=== PATIENT | female | born 1990 | race Hispanic/Latino ===

== ENCOUNTER → 2024-03-04 10:06 | Outpatient (CLI) | payer OTHER, SELFPAY ==
[2024-03-05 09:57] LABS: Strep Grp B PCR NEG for Grp B Strep
== END ==
PROVIDERS: Visit Provider Obstetrics & Gynecology
DX: Z34.03 Encounter for supervision of normal first pregnancy, third trimester (principal); Z3A.36 36 weeks gestation of pregnancy
CPT/HCPCS: 87653

== ENCOUNTER 2024-03-04 10:16 | Observation (INO) | payer OTHER, SELFPAY ==
--- NOTE | 2024-03-04 11:19 | DI.US.S_ITS ---
PROCEDURE: US OB LIMITED INDICATIONS: growth suspected macrosomia OUTSIDE/PRIOR DATING DATA: Last menstrual period (LMP): Unknown. LMP-based estimated date of delivery (KAZ): Unknown. First dating scan (date and location): Not available Estimated date of delivery (KAZ) from first dating scan: Not available The calculations are made using the working KAZ of 03/30/2024. TECHNIQUE: Real-time scanning was performed of the fetus, with image documentation and biometric measurements. Endovaginal scanning: Not performed COMPARISON: None. FINDINGS: General: A single living intrauterine gestation is present. Presentation: Vertex Placenta: Placental position is posterior, without previa. Amniotic fluid index: 12.5 cm, normal range is 5-24 cm. Single deepest vertical pocket is 3.8 cm. heart rate: 123 beats per minute. Maternal cervical canal: 3.8 cm long. Normal lower limit is 2.5 cm. biometrics: Biparietal diameter: 9.1 cm, 36 weeks, 6 days. Head circumference: 33.4 cm, 38 weeks, 1 day. Abdominal circumference: 32.7 cm, 36 weeks, 5 days. Femur length: 7.0 cm, 35 weeks, 6 days. Clinically estimated gestational age: 36 weeks, 2 days Composite gestational age from present scan: 36 weeks, 6 days Estimated weight and percentile: 2987 g, 62%. IMPRESSION: 1. Single live intrauterine gestation with fetus in vertex presentation. heart rate is 123 beats per minute. Normal [place] at at 12.5 cm. Estimated gestational age based on present study is 36 weeks, 6 days. Estimated weight is at 62%. We strive to produce accurate, complete, and clear reports of imaging services. To assist us in improving patient care, this report was composed using standard report templates and voice recognition software. Therefore, it may contain abnormal punctuation, insertions and/or omissions. Occasional wrong-word or sound-alike substitutions may occur. Though we review the report and make efforts to correct it, we do recommend that the report be read carefully in proper context to recognize any text inaccuracies. Dictated by: Mohit Feldman M.D. on 03/04/2024 at 13:33 Approved by: Mohit Feldman M.D. on 03/04/2024 at 13:35
== END 2024-03-04 12:30 | disposition home or self-care (01) ==
PROVIDERS: Admitting Provider Obstetrics & Gynecology; Referring Provider Obstetrics & Gynecology; Visit Provider Obstetrics & Gynecology
DX: Z34.03 Encounter for supervision of normal first pregnancy, third trimester (principal); Z3A.36 36 weeks gestation of pregnancy
CPT/HCPCS: 36415; 59025; 76815; 83036; 85025; 86592; 87340; 87389; 87653; G0378; G0379

== ENCOUNTER → 2024-03-04 12:27 | Outpatient (CLI) | payer OTHER, SELFPAY ==
[2024-03-04 13:17] LABS: Add Manual Diff / Slide Review NO; Basophils Absolute Auto 0 /uL (0-100); Basophils Percent Auto 0.5 % (0-2); Eosinophils Absolute Auto 200 /uL (0-450); Eosinophils Percent Auto 1.9 % (2-4); Hematocrit 37.9 % (36-46); Hemoglobin 12.9 g/dL (12.0-16.0); Lymphocytes Absolute Auto 1500 /uL (1100-4500); Lymphocytes Percent Auto 16.8 % (25-40); Mean Corpuscular HGB Conc 34.1 % (30-36); Mean Corpuscular Hemoglobin 31.3 PG (26-34); Mean Corpuscular Volume 91.8 fL (80-100); Monocytes Absolute Auto 800 /uL (0-900); Monocytes Percent Auto 8.6 % (3-14); Neutrophils Absolute Auto 6600 /uL (1500-7000); Neutrophils Percent Auto 72.2 % (50-75); Platelet Count 202 X10^3/uL (150-400); Red Blood Cell Count 4.13 X10^6/uL (4.0-5.2); Red Cell Distribution Width 13.6 % (11.6-14.8); White Blood Cell Count 9.1 X10^3/uL (4.5-11.0)
[2024-03-04 13:22] LABS: Hemoglobin A1C% w Est Avg Glu 5.2 % (4.0-6.0)
[2024-03-04 18:04] LABS: HIV 1 & 2 Ab/Ag 4th Gen Combo NEGATIVE (NEGATIVE); Hepatitis B Surface Antigen NEGATIVE s/c (NEGATIVE)
[2024-03-05 06:11] LABS: RPR Screen Non Reactive (Non Reactive)
== END ==
PROVIDERS: Referring Provider Obstetrics & Gynecology; Visit Provider Obstetrics & Gynecology
DX: Z34.90 Encounter for supervision of normal pregnancy, unspecified, unspecified trimester (principal)
CPT/HCPCS: 36415; 83036; 85025; 86592; 87340; 87389

== ENCOUNTER 2024-03-25 04:01 | Outpatient (CLI) | payer OTHER, SELFPAY | END 2024-03-25 05:00 | disposition home or self-care (01) | LOC: LABOR 04:05 → OB 03-27 11:45 | PROVIDERS: Referring Provider Obstetrics & Gynecology; Visit Provider Obstetrics & Gynecology | DX: O47.1 False labor at or after 37 completed weeks of gestation (principal); Z3A.39 39 weeks gestation of pregnancy | CPT/HCPCS: 59025; G0378; G0379 ==

== ENCOUNTER 2024-03-26 01:40 | Observation (INO) | payer OTHER, SELFPAY | END 2024-03-26 02:20 | disposition home or self-care (01) | LOC: LABOR 01:42 | PROVIDERS: Admitting Provider Family Medicine; Referring Provider Family Medicine; Visit Provider Family Medicine | DX: O47.1 False labor at or after 37 completed weeks of gestation (principal); Z3A.39 39 weeks gestation of pregnancy | CPT/HCPCS: 59025; G0378; G0379 ==

== ENCOUNTER 2024-03-26 06:35 | Inpatient (IN) | payer OTHER, SELFPAY ==
[2024-03-26 07:32] LABS: Add Manual Diff / Slide Review NO; Basophils Absolute Auto 100 /uL (0-100); Basophils Percent Auto 0.4 % (0-2); Eosinophils Absolute Auto 100 /uL (0-450); Eosinophils Percent Auto 0.9 % (2-4); Hemoglobin 12.9 g/dL (12.0-16.0); Lymphocytes Absolute Auto 1500 /uL (1100-4500); Lymphocytes Percent Auto 10.7 % (25-40); Mean Corpuscular Volume 91.2 fL (80-100); Monocytes Absolute Auto 900 /uL (0-900); Monocytes Percent Auto 6.7 % (3-14); Neutrophils Absolute Auto 11100 /uL (1500-7000); Neutrophils Percent Auto 81.3 % (50-75); Platelet Count 204 X10^3/uL (150-400); Red Blood Cell Count 4.17 X10^6/uL (4.0-5.2); Red Cell Distribution Width 13.7 % (11.6-14.8); White Blood Cell Count 13.7 X10^3/uL (4.5-11.0)
--- NOTE | 2024-03-26 07:55 | P.HPOB_ITS ---
OB HPI Date/Time Date of admission: 03/26/24 Date Patient Seen: 03/26/24 Time Patient Seen: 07:30 History of Present Condition Chief complaint: : 1 Estimated Date of Delivery: 03/30/24 Estimated Gestational Age (weeks): 39w3d Narrative: Lizeth Starr is a 33 year old female G1 at 39w3d d=11wk US who presents to triage in term labor. Pt initially seen early this AM for c/o same, ftp/thick/hi at that time and sent home with precautions. Pt subsequently returned to hospital this AM with interval cervical change (/-2 per RN exam), membranes intact. course notable for late transfer of care to our practice at 36wga secondary to . Excessive maternal weight gain (TWG 31#) without evidence of hyperglycemia, appropriate interval growth US. 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 History of Present care: good care Dating criteria: LMP confirmed by 1st trimester US Ultrasounds: normal mid trimester US Abnormal ultrasound findings: growth US 03/04/24: EFW 2987g (62th%) Obstetrical complications: other (borderline excessive maternal weight gain ) Medical complications: none Preadmission Labs Blood type: A (+) positive -: Antibody screen: negative, Cystic fibrosis screen: unknown, GBS status: negative, HBsAG: negative, HIV: negative, HSV 1: positive (no prior outbreak, on suppression), HSV 2: positive (no prior outbreak, on suppression) and RPR/VDLR: negative -: Chlamydia screen: not detected and Gonorrhea screen: not detected -: Rubella: not immune (needs MMR) PAP: Normal Cell-free DNA: low risk XX 1 hr GTT: 103 Evaluation Evaluation Baseline heart rate: 130 Variability: Moderate (11-25) monitor accelerations: Present Monitor Decelerations: Absent Contraction Frequency (minutes): 3 Uterine Contraction Intensity: Moderate Category of Tracing: Reactive Status: Category l Dilation (cm): 8 Effacement (%): 90 Dilation: >/=5 cm Effacement: >/=80% station: -1 Position of cervix: mid Consistency: soft Russo score: 11 [facility] Medical History (Updated 03/04/24 @ 12:12 by Carmen Jara MD) Excessive weight gain during , antepartum Third trimester History of cold sores Eczema Surgical History (Updated 02/28/24 @ 15:42 by Maribell Duarte, RN) Status post cryotherapy of skin lesion History of thoracic surgery History of appendectomy (~2013) Family History (Updated 02/28/24 @ 15:45 by Maribell Duarte, RN) Grandmother Glaucoma Anxiety Depression Grandmother Alzheimer disease Dementia Diabetes mellitus Mother Anxiety Depression Father Alcoholism Grandfather Alcoholism Brother Bipolar disorder Anxiety Depression Family/Other Congenital pectus excavatum Social History marital status: unmarried,living together number of children: 0 household members: significant other lives independently: Yes caregiver/support person: No housing: house pets and animals: No education level: college (some college) occupational status: employed (works from home) current occupational exposures/hazards: No special eileen needs: No travel history: recent ([facility] only) seatbelt use: always water heater temp set < 120 deg: Yes working smoke detector in home: Yes fire extinguisher in home: Yes carbon monox detector in home: Yes firearms in home: Yes firearms unloaded and locked: Yes do you feel safe at home: Yes Smoking Status: Never smoker alcohol intake: former (~1-2/week when not ) substance use type: does not use during the past year weight has: other (stable prior to ) well-balanced diet: daily or most days daily servings fruits/ve-4 caffeine: Yes (small cup coffee in AM) Type(s) of exercise: walking Meds Home Medications and Allergies Home Medications Medication Instructions Recorded Confirmed Type cetirizine 10 mg tablet (Allergy 10 mg PO DAILY PRN Allergy Symptoms 02/28/24 03/26/24 History Relief (cetirizine)) vitamin-ferrous sulfate 1 tab PO 1XD vitamins 02/28/24 03/26/24 History 27 mg iron-folic acid 0.8 mg tablet valacyclovir 1 gram tablet 1,000 mg PO DAILY #45 tabs 03/04/24 03/26/24 Rx (Valtrex) Allergies Allergy/AdvReac Type Severity Reaction Status Date / Time No Known Drug Allergies Allergy Unverified 03/19/24 10:45 Review of Systems Review of Systems ROS: Yes All systems reviewed with the patient and are negative except as otherwise documented OB Exam Vital signs Blood Pressure: 115/71 Pulse Rate: 100 Respiratory Rate: 18 Temperature: 36.4 F Narrative Exam Narrative: breathing through contractions HENMT Head: normal to inspection Mouth: moist mucous membranes Eyes General: appearance normal, both eyes and all related structures Resp Effort & Inspection: normal respiratory effort Cardio Rate: tachycardic Rhythm: regular rhythm Extremities Lower extremity: Yes normal to inspection GI Inspection: normal to inspection Other: zeb cephalic 7.5# External Female Exam: Yes normal external appearance Speculum Exam - Vagina: Yes normal appearance of the vagina Speculum Exam - Cervix: normal appearance of the cervix Other: /-1, bulging bag no lesions Objective Labs 03/26/24 07:00 Labs: Laboratory Results - last 24 hr 03/26/24 07:00 WBC 13.7 H RBC 4.17 Hgb 12.9 Hct 38.0 MCV 91.2 MCH 31.0 MCHC 34.0 RDW 13.7 Plt Count 204 Neut % (Auto) 81.3 H Lymph % (Auto) 10.7 L [place] % (Auto) 6.7 Eos % (Auto) 0.9 L Baso % (Auto) 0.4 Neut # (Auto) 91155 H Lymph # (Auto) 1500 [place] # (Auto) 900 Eos # (Auto) 100 Baso # (Auto) 100 Assessment and Plan Assessment and Plan Assessment and Plan narrative: 33yo G1 at 39w3d d=11wk US presents in active term labor Term labor Admit orders in, CBC/T&S on admission PNL reviewed, GBS neg, rubella non-immune, +HSV per serology without h/o outbreak and compliant with suppressive therapy, no lesions on admission Cat 1 tracing/maternal VSS anticipate vaginal delivery Patient is consented for vaginal, vaginal operative and delivery as well as transfusion of blood products as medically indicated. Risks, benefits and alternatives to therapies were reviewed with patient and partner. Time Spent with Patient Total time spent with greater than 50% in coordination of care (as documented) at patient's floor/unit and/or counseling patient:: 15-24 minutes
[2024-03-26 08:11] VITALS: BP 115/71
[2024-03-26] MEDS: LACTATED RINGERS 1,000 ML 100 ML IV (08:13)
[2024-03-26 08:32] VITALS: BP 115/71; PULSE 100; RESP 18; TEMP 2.4; TEMP 36.4
[2024-03-26] MEDS: LACTATED RINGERS 500 ML 1000 ML IV (09:40)
--- NOTE | 2024-03-26 10:03 | PM.OBPRVD ---
Events: Other (term labor ) Labor & Delivery Delivery date: 03/26/24 Intrapartal Events: None Cervical ripening method: none Induction method: none Delivery augmentation: rupture of membranes Delivery monitor: external FHT Route of delivery: Episiotomy description: None L&D Laceration Description: Vaginal - 1st Degree Delivery repair: other (none) Estimated blood loss (mL): 250 Quantitative Blood Loss: 242 Anesthesia Type: None (inhaled nitrous ) [place] Baby 1: gender: Female Presentation: vertex Position: Left Occiput Anterior Placenta delivery description: Spontaneous Cord Vessel Description: 3 Vessels score (1 min): 8 score (5 min): 9 weight: 7 lb 6 oz Narrative: Pt in dorsal lithotomy position, intact bulging forebag artificially ruptured with return of copious clear fluid. C/C/+1. Expulsive efforts initiated with slow, progressive descent of head to +2 station, Cat 1 tracing per external monitor throughout second stage. Ongoing self-administration of nitrous per pt secondary to difficulty with pain control. Over next 2 pushes delivery of head over intact perineum, OA with restitution to maternal L. Noted compound presentation (RUE) delivered through; no nuchal cord. Anterior shoulder delivered with gentle downwards traction followed by immediate delivery of posterior shoulder and body. placed on maternal abdomen and immediately vigorous. Delayed cord clamping x90s; cord clamped x2 and cut by FOB. 3VC noted and cord blood collected. Placenta delivered spontaneously and intact, brisk bleeding resolved with fundal massage with subsequent noted excellent tone. Perineal exam revealed single L vaginal laceration (hemostatic) and R periurethral laceration (hemostatic), no indication for repair. Fundus again palpated and found to be firm. Plan for aftercare: Routine care
[2024-03-26] MEDS: ACETAMINOPHEN 325 MG TABLET 650 MG PO ×2 (12:48→18:45)
[2024-03-26] MEDS: IBUPROFEN 600 MG TABLET PO ×2 (12:48→18:46)
[2024-03-26] MEDS: DERMOPLAST SPRAY 20% 60 ML 1 SPRAY TOP (18:11)
[2024-03-27] MEDS: ACETAMINOPHEN 325 MG TABLET 650 MG PO ×2 (02:03→08:43)
[2024-03-27] MEDS: IBUPROFEN 600 MG TABLET PO ×2 (02:04→08:43)
[2024-03-27 06:52] LABS: Add Manual Diff / Slide Review NO; Basophils Absolute Auto 100 /uL (0-100); Basophils Percent Auto 0.9 % (0-2); Eosinophils Absolute Auto 200 /uL (0-450); Eosinophils Percent Auto 2.2 % (2-4); Hematocrit 32.2 % (36-46); Hemoglobin 11.1 g/dL (12.0-16.0); Lymphocytes Absolute Auto 1400 /uL (1100-4500); Lymphocytes Percent Auto 13.3 % (25-40); Mean Corpuscular HGB Conc 34.4 % (30-36); Mean Corpuscular Hemoglobin 31.3 PG (26-34); Mean Corpuscular Volume 91.2 fL (80-100); Monocytes Absolute Auto 900 /uL (0-900); Neutrophils Absolute Auto 7800 /uL (1500-7000); Neutrophils Percent Auto 74.6 % (50-75); Platelet Count 175 X10^3/uL (150-400); Red Blood Cell Count 3.53 X10^6/uL (4.0-5.2); Red Cell Distribution Width 13.8 % (11.6-14.8); White Blood Cell Count 10.5 X10^3/uL (4.5-11.0)
--- NOTE | 2024-03-27 08:07 | PM.PN.1 ---
Subjective Subjective Date Patient Seen: 03/27/24 Time Patient Seen: 07:30 Exam Vital Signs (past 8 hours): BP 108/70 HR 81 RR 18 Tc 97.5F Narrative Exam Narrative: sleeping, easily aroused; in bassinet at bedside Const General: cooperative, healthy appearing and comfortable Nutritional Appearance: average body habitus Orientation: alert and oriented x3 Limitations: mental status not altered HENMT Head: normal to inspection Mouth: moist mucous membranes Eyes General: appearance normal, both eyes and all related structures Neck Neck: normal visual inspection Chest Chest: normal inspection of the chest Breast inspection: normal inspection of the breasts Resp Effort & Inspection: normal respiratory effort Cardio Pulses: normal peripheral pulses GI Other: fundus firm << Umb, non-tender Other: deferred, lochia wnl per RN Skin General: no rashes or lesions noted Neuro General: patient alert, patient awake and patient oriented x3 Extrem General: normal to inspection Psych Appearance: grossly normal and well kempt Mental Status: mental status grossly normal Mood: congruent mood Judgment: judgment good Objective Labs 03/27/24 06:39 Labs: Laboratory Results - last 24 hr 03/26/24 03/27/24 07:00 06:39 WBC 10.5 RBC 3.53 L Hgb 11.1 L Hct 32.2 L MCV 91.2 MCH 31.3 MCHC 34.4 RDW 13.8 Plt Count 175 Neut % (Auto) 74.6 Lymph % (Auto) 13.3 L [place] % (Auto) 9.0 Eos % (Auto) 2.2 Baso % (Auto) 0.9 Neut # (Auto) 7800 H Lymph # (Auto) 1400 [place] # (Auto) 900 Eos # (Auto) 200 Baso # (Auto) 100 Blood Type A Positive Antibody Screen Negative [facility] Medical History (Updated 03/27/24 @ 08:15 by Carmen Jara MD) Excessive weight gain during , antepartum Third trimester History of cold sores Eczema Surgical History (Updated 02/28/24 @ 15:42 by Maribell Duarte, GRACY) Status post cryotherapy of skin lesion History of thoracic surgery History of appendectomy (~2013) Family History (Updated 02/28/24 @ 15:45 by Maribell Duarte, GRACY) Grandmother Glaucoma Anxiety Depression Grandmother Alzheimer disease Dementia Diabetes mellitus Mother Anxiety Depression Father Alcoholism Grandfather Alcoholism Brother Bipolar disorder Anxiety Depression Family/Other Congenital pectus excavatum Social History marital status: unmarried,living together number of children: 0 household members: significant other lives independently: Yes caregiver/support person: No housing: house pets and animals: No education level: college (some college) occupational status: employed (works from home) current occupational exposures/hazards: No special eileen needs: No travel history: recent ([facility] only) seatbelt use: always water heater temp set < 120 deg: Yes working smoke detector in home: Yes fire extinguisher in home: Yes carbon monox detector in home: Yes firearms in home: Yes firearms unloaded and locked: Yes do you feel safe at home: Yes Smoking Status: Never smoker alcohol intake: former (~1-2/week when not ) substance use type: does not use during the past year weight has: other (stable prior to ) well-balanced diet: daily or most days daily servings fruits/ve-4 caffeine: Yes (small cup coffee in AM) Type(s) of exercise: walking Assessment & Plan Assessment and plan (1) Encounter for vaginal delivery: Status: Acute Plan 33yo PPD1 s/p lf LBFI, doing well routine care exclusively, support PRN PNL as per admission documentation rubella NON-IMMUNE, MMR prior to discharge declines immediately contraception bridge, counseled on risk of escape ovulation/use of barrier protection plan for routine office f/u 4-6wk Dispo: pending clinical course, anticipate dc to home later today PPD1 vs PPD2 pending clearance and maternal support needs Time Spent With Patient Time with patient: less than 30 minutes
[2024-03-27] MEDS: DOCUSATE 100 MG CAPSULE PO (08:44)
--- NOTE | 2024-03-27 11:45 | P.DS_ITS ---
History of Present Illness History of Present Illness Date Patient Seen: 03/27/24 Time Patient Seen: 11:46 Date of Onset of Symptoms: 03/25/24 Chief complaint: Narrative: 33yo G1 admitted to for expectant management of term labor, 39w3d on admission. Known h/o HSV without prior outbreak compliant with valtrex therapy, no lesions on admission exam; GBS negative. Pt had rapid progression to active labor, second stage uncomplicated with maternal use of inhaled nitrous for analgesia. LBFI, 8/9, wgt 7#6oz. Perineum intact, hemostatic vaginal and periurethral lacerations not repaired. Pt had uncomplicated course, exclusively, meeting all discharge milestones on PPD1. Pt declined bridge contraception at discharge, appropriately counseled on risk of escape ovulation. Routine f/u in office 4-6wks. Discharge Providers Provider Date of admission: 03/26/24 06:35 Discharge Date: 03/27/24 Primary care physician: Doctor Tor MD Consults: 03/26/24 07:15 Consult to Anesthesiology Urgent Comment: Consulting Provider: Anesthesiologist Reason for consultation: Epidural 03/27/24 12:16 Consult to Telemarketing Representative Routine Comment: Discharge provider: Carmen Jara MD Summary Hospital Course Discharge Diagnosis: s/p Hospital Course: 33yo G1 admitted to for expectant management of term labor, 39w3d on admission. Known h/o HSV without prior outbreak compliant with valtrex therapy, no lesions on admission exam; GBS negative. Pt had rapid progression to active labor, second stage uncomplicated with maternal use of inhaled nitrous for analgesia. LBFI, 8/9, wgt 7#6oz. Perineum intact, hemostatic vaginal and periurethral lacerations not repaired. Pt had uncomplicated course, exclusively, meeting all discharge milestones on PPD1. Pt declined bridge contraception at discharge, appropriately counseled on risk of escape ovulation. Routine f/u in office 4-6wks. Status at Discharge Cognitive/behavioral status at discharge: oriented Functional status at discharge: independent ambulation Overall status at discharge: patient is back to baseline Time Spent with Patient Time spent: Less than 30 minutes Objective Labs 03/27/24 06:39 Labs: Laboratory Results - last 24 hr 03/27/24 06:39 WBC 10.5 RBC 3.53 L Hgb 11.1 L Hct 32.2 L MCV 91.2 MCH 31.3 MCHC 34.4 RDW 13.8 Plt Count 175 Neut % (Auto) 74.6 Lymph % (Auto) 13.3 L [place] % (Auto) 9.0 Eos % (Auto) 2.2 Baso % (Auto) 0.9 Neut # (Auto) 7800 H Lymph # (Auto) 1400 [place] # (Auto) 900 Eos # (Auto) 200 Baso # (Auto) 100 PFSH Medical History (Updated 03/27/24 @ 08:15 by Carmen Jara MD) Excessive weight gain during , antepartum Third trimester History of cold sores Eczema Surgical History (Updated 02/28/24 @ 15:42 by Mraibell Duarte, RN) Status post cryotherapy of skin lesion History of thoracic surgery History of appendectomy (~2013) Family History (Updated 02/28/24 @ 15:45 by Maribell Duarte RN) Grandmother Glaucoma Anxiety Depression Grandmother Alzheimer disease Dementia Diabetes mellitus Mother Anxiety Depression Father Alcoholism Grandfather Alcoholism Brother Bipolar disorder Anxiety Depression Family/Other Congenital pectus excavatum Social History marital status: unmarried,living together number of children: 0 household members: significant other lives independently: Yes caregiver/support person: No housing: house pets and animals: No education level: college (some college) occupational status: employed (works from home) current occupational exposures/hazards: No special eileen needs: No travel history: recent ([facility] only) seatbelt use: always water heater temp set < 120 deg: Yes working smoke detector in home: Yes fire extinguisher in home: Yes carbon monox detector in home: Yes firearms in home: Yes firearms unloaded and locked: Yes do you feel safe at home: Yes Smoking Status: Never smoker alcohol intake: former (~1-2/week when not ) substance use type: does not use during the past year weight has: other (stable prior to ) well-balanced diet: daily or most days daily servings fruits/ve-4 caffeine: Yes (small cup coffee in AM) Type(s) of exercise: walking Discharge Plan Discharge Plan Patient Disposition: Home Discharge orders & Medications Prescriptions: New acetaminophen 325 mg Tablet 650 mg PO Q6H PRN (Reason: Fever/Mild Pain (1-3)) Qty: 30 0RF Dermoplast (with menthol) 20-0.5 % Aerosol 1 spray topical Q1HR PRN (Reason: Pain, Moderate (4-6)) Qty: 56 0RF ibuprofen 600 mg Tablet 600 mg PO Q6HR PRN (Reason: Fever/Mild Pain (1-3)) Qty: 60 0RF Purelan Cream 1 applic topical PRN PRN (Reason: Tenderness) Qty: 7 0RF A.E.R. Witch Ami 12.5-50 % Pads, Medicated 1 pad topical Q30M PRN (Reason: Itching) Qty: 40 0RF Continued vit-ferrous sulfat-FA 27 mg iron- 0.8 mg tablet 1 tab PO 1XD MDD 1 cetirizine [Allergy Relief (cetirizine)] 10 mg tablet 10 mg PO DAILY MDD 10 PRN (Reason: Allergy Symptoms) Discontinued valacyclovir [Valtrex] 1 gram tablet 1,000 mg PO DAILY Qty: 45 0RF Follow up/Referrals: Doctor Lentz MD [Primary Care Provider] - Carmen Jara MD [Physician] - Diet/Activity/Treatments Diet: Regular Activity: Nothing in the vagina for 6 weeks; no tampons, intercourse, douching, swimming in fresh water/hot tubs. Tub baths are okay after 2 weeks if tub is cleaned well first. Visit Report/Discharge Packet Instructions: DI for Labor and Delivery, Vaginal Stand Alone Forms: Patient Portal/API, Stroke Signs & Symptoms Discharge Data Primary Care Provider: Doctor Tor
[2024-03-27 11:46] VITALS: BP 108/70; PULSE 61; RESP 18; TEMP 36.4
[2024-03-27] MEDS: MEASLES,MUMPS,RUBELLA VACC/PF 0.5 ML VIAL SUBCUT (12:29)
== END 2024-03-27 18:09 | disposition home or self-care (01) | DRG 807 ==
PROVIDERS: Admitting Provider Obstetrics & Gynecology; Referring Provider Obstetrics & Gynecology; Visit Provider Obstetrics & Gynecology
DX: O98.32 Other infections with a predominantly sexual mode of transmission complicating childbirth (principal); Z37.0 Single live birth; A60.9 Anogenital herpesviral infection, unspecified; Z3A.39 39 weeks gestation of pregnancy
CPT/HCPCS: 36415; 59025; 59050; 85025; 86850; 86900; 86901; G0378; G0379

== ENCOUNTER 2024-12-02 09:19 | Emergency (ER) | payer OTHER, SELFPAY ==
[2024-12-02 09:28] VITALS: BP 126/87; PULSE 90; RESP 18; TEMP 36.5; O2SAT 99; BMI 22.7
--- NOTE | 2024-12-02 09:38 | DI.US.S_ITS ---
PROCEDURE: US OB <= 14 WEEKS FETUS INDICATIONS: spotting/cramping with LMP 1/4 OUTSIDE/PRIOR DATING DATA: Last menstrual period (LMP): 11/02/2024. LMP-based estimated date of delivery (KAZ): 08/09/2025. First dating scan (date and location): Today's exam Estimated date of delivery (KZA) from first dating scan: 08/04/2025. TECHNIQUE: Real-time scanning was performed of the fetus and maternal pelvic organs, with image documentation. Endovaginal scanning was also performed to better visualize the fetus and maternal ovaries. COMPARISON: None. FINDINGS: Suspected early gestational , with a early gestational sac present within the upper endometrium. The sac measures 3.3 mm, corresponding to 5 weeks 0 days. No fetus visualized. Maternal organs: There is a hemorrhagic cyst of the right ovary measuring 3.1 x 3.8 x 4.3 cm. Left ovary is unremarkable. IMPRESSION: Suspected intrauterine gestational , with an intrauterine gestational sac measuring up to 5 weeks 0 days, KAZ of 08/04/2025. This is concordant with clinical dating. Large right ovarian hemorrhagic cyst measuring up to 4.3 cm. We strive to produce accurate, complete, and clear reports of imaging services. To assist us in improving patient care, this report was composed using standard report templates and voice recognition software. Therefore, it may contain abnormal punctuation, insertions and/or omissions. Occasional wrong-word or sound-alike substitutions may occur. Though we review the report and make efforts to correct it, we do recommend that the report be read carefully in proper context to recognize any text inaccuracies. Dictated by: Dontrell Oneil M.D. on 12/02/2024 at 10:41 Approved by: Dontrell Oneil M.D. on 12/02/2024 at 10:44
[2024-12-02 09:58] LABS: Urine Volume 10mL (spun)
[2024-12-02 10:04] LABS: Bacteria Urine None Seen; Culture Indicated Urine Cult Not Indicated; Mucus Urine 2+ (Negative); RBC Urine None Seen (0-5/HPF); Squamous Epithelial Cell Urine 10-30 /HPF (0-5/HPF); WBC Urine None Seen (0-5/HPF)
[2024-12-02 10:07] LABS: Add Manual Diff / Slide Review NO; Basophils Absolute Auto 0 /uL (0-100); Basophils Percent Auto 0.4 % (0-2); Eosinophils Absolute Auto 100 /uL (0-450); Eosinophils Percent Auto 0.7 % (2-4); Hematocrit 41.3 % (36-46); Hemoglobin 13.9 g/dL (12.0-16.0); Lymphocytes Absolute Auto 1300 /uL (1100-4500); Mean Corpuscular HGB Conc 33.8 % (30-36); Mean Corpuscular Hemoglobin 30.2 PG (26-34); Mean Corpuscular Volume 89.3 fL (80-100); Monocytes Absolute Auto 500 /uL (0-900); Monocytes Percent Auto 5.1 % (3-14); Neutrophils Absolute Auto 7700 /uL (1500-7000); Neutrophils Percent Auto 79.8 % (50-75); Platelet Count 277 X10^3/uL (150-400); Red Blood Cell Count 4.62 X10^6/uL (4.0-5.2); Red Cell Distribution Width 12.5 % (11.6-14.8); White Blood Cell Count 9.6 X10^3/uL (4.5-11.0)
[2024-12-02 10:13] LABS: Alanine Aminotransferase 22 IU/L (<35); Albumin 4.7 g/dL (3.5-5.0); Albumin Globulin Ratio 1.5 (1.0-2.8); Alkaline Phosphatase 41 U/L (38-126); Aspartate Aminotransferase 25 IU/L (14-36); BUN Creatinine Ratio 12.2 (6-22); Bilirubin Total 0.5 mg/dL (0.2-1.3); Blood Urea Nitrogen 9 mg/dL (7-17); Calcium 9.5 mg/dL (8.4-10.2); Carbon Dioxide 24 mmol/L (22-32); Chloride 105 mmol/L (98-107); Estimated Glomerular Filt Rate > 60 mL/min (>60); Globulin 3.2 g/dL (1.7-4.1); Glucose 96 mg/dL (70-100); HEMOLYSIS < 15 (0-50); Sodium 137 mmol/L (137-145); Total Protein 7.9 g/dL (6.3-8.2)
--- NOTE | 2024-12-02 11:33 | ED.FEMALEGU ---
HPI - Female Genitourinary General Chief complaint: Abdominal Pain Stated complaint: abd cramping- preg test monday Time Seen by Provider: 12/02/24 10:28 Source: patient, RN notes reviewed and old records reviewed Mode of arrival: Ambulatory Limitations: no limitations History of Present Illness HPI Narrative: 34-year-old female last menstrual period 11/02/2024 had some spotting on Monday has had some cramping had a positive test x3 this Monday. Patient states no additional spotting or bleeding but had increased cramping today there is a little bit more intense that is improved but still present. No fevers. No lightheadedness or passing out. No chest pain or shortness of breath. No nausea or vomiting. No issues with bowel movements no urinary symptoms. Patient states no daily medications. No major drug allergies. No tobacco, no regular alcohol or recreational drugs. Related Data Home Medications Medication Instructions Recorded Confirmed cetirizine 10 mg tablet (Allergy 10 mg PO DAILY PRN Allergy Symptoms 02/28/24 04/26/24 Relief (cetirizine)) vitamin-ferrous sulfate 1 tab PO 1XD vitamins 02/28/24 04/26/24 27 mg iron-folic acid 0.8 mg tablet Previous Rx's Medication Instructions Recorded acetaminophen 325 mg tablet 650 mg (2 x 325 mg) PO Q6H PRN 03/27/24 Fever/Mild Pain (1-3) #30 tabs benzocaine 20 %-menthol 0.5 % 1 spray topical Q1HR PRN Pain, 03/27/24 topical aerosol (Dermoplast (with Moderate (4-6) #56 grams menthol)) glycerin-witch emily 12.5 %-50 % 1 pad topical Q30M PRN Itching #40 03/27/24 topical pads (A.E.R. Witch Emily) ea ibuprofen 600 mg tablet 600 mg PO Q6HR PRN Fever/Mild Pain 03/27/24 (1-3) #60 tabs lanolin (Purelan topical cream) 1 applic topical PRN PRN 03/27/24 Tenderness #7 grams oxytocin See Rx Instructions .Route 04/05/24 .COMPLEX #10 mL norgestimate 0.25 mg-ethinyl 1 tab PO DAILY #84 tabs 04/26/24 estradiol 35 mcg tablet Allergies Allergy/AdvReac Type Severity Reaction Status Date / Time No Known Drug Allergies Allergy Unverified 04/26/24 11:02 Review of Systems Review of Systems ROS Unobtainable: All systems reviewed & are unremarkable except as noted in HPI and below Patient History Medical History Excessive weight gain during , antepartum Third trimester History of cold sores Eczema Surgical History Status post cryotherapy of skin lesion History of thoracic surgery History of appendectomy (~2013) Family History Grandmother Glaucoma Anxiety Depression Grandmother Alzheimer disease Dementia Diabetes mellitus Mother Anxiety Depression Father Alcoholism Grandfather Alcoholism Brother Bipolar disorder Anxiety Depression Family/Other Congenital pectus excavatum Exam Narrative Exam Narrative: GENERAL: Alert and oriented x three, female in mild distress HEENT: Head normocephalic, atraumatic, EOMI, pupils reactive, face symmetric, moist mucous membranes NECK: Supple, full range of motion CARDIOVASCULAR: Regular rate and rhythm without murmurs, rubs or gallops. RESPIRATORY: Breath sounds equal bilaterally, no wheezes rales or rhonchi. ABDOMEN: Soft, mild suprapubic tenderness.. Normoactive bowel sounds all 4 quadrants. No guarding or rebound, rigidity, no mass : No CVA tenderness EXTREMITIES: Normal range of motion, no clubbing or edema. Neurovascularly intact NEUROLOGICAL: Cranial nerves II through XII grossly intact. Moving all extremities SKIN: Warm, dry, no petechiae, no rashes or lesions. Initial Vital Signs Initial Vital Signs: Vital Signs Temperature 97.7 F 12/02/24 09:28 Pulse Rate 90 12/02/24 09:28 Respiratory Rate 18 12/02/24 09:28 Blood Pressure 126/87 12/02/24 09:28 Pulse Oximetry 99 12/02/24 09:28 Oxygen Delivery Method Room Air 12/02/24 09:28 Course Orders Ordered: ED Orders 12/02/24 09:38 US OB <= 14 weeks fetus Stat 12/02/24 09:45 Urine Microscopic Stat 12/02/24 09:50 Complete Blood Count AUTO DIFF Stat Comprehensive Metabolic Panel Stat HCG Quantitative /Beta subunit Stat Type and Screen Stat Vital Signs Vital signs: Vital Signs - 8 hr 12/02/24 11:50 12/02/24 11:51 12/02/24 11:51 Pulse Rate 110 H 106 H Blood Pressure 119/75 Pulse Oximetry 100 100 MDM - Female Genitourinary Lab Data 12/02/24 09:50 12/02/24 09:50 Labs: Lab Results 12/02/24 12/02/24 Range/Units 09:45 09:50 WBC 9.6 (4.5-11.0) X10^3/uL RBC 4.62 (4.0-5.2) X10^6/uL Hgb 13.9 (12.0-16.0) g/dL Hct 41.3 (36-46) % MCV 89.3 (80-100) fL MCH 30.2 (26-34) PG MCHC 33.8 (30-36) % RDW 12.5 (11.6-14.8) % Plt Count 277 (150-400) X10^3/uL Neut % (Auto) 79.8 H (50-75) % Lymph % (Auto) 14.0 L (25-40) % [place] % (Auto) 5.1 (3-14) % Eos % (Auto) 0.7 L (2-4) % Baso % (Auto) 0.4 (0-2) % Neut # (Auto) 7700 H (9924-9398) /uL Lymph # (Auto) 1300 (1801-5712) /uL [place] # (Auto) 500 (0-900) /uL Eos # (Auto) 100 (0-450) /uL Baso # (Auto) 0 (0-100) /uL Sodium 137 (137-145) mmol/L Potassium 4.0 (3.4-5.1) mmol/L Chloride 105 (98-107) mmol/L Carbon Dioxide 24 (22-32) mmol/L BUN 9 (7-17) mg/dL Creatinine 0.74 (0.52-1.04) mg/dL Estimated GFR > 60 (>60) mL/min BUN/Creatinine Ratio 12.2 (6-22) Glucose 96 (70-100) mg/dL Calcium 9.5 (8.4-10.2) mg/dL Total Bilirubin 0.5 (0.2-1.3) mg/dL AST 25 (14-36) IU/L ALT 22 (<35) IU/L Alkaline Phosphatase 41 (38-126) U/L Total Protein 7.9 (6.3-8.2) g/dL Albumin 4.7 (3.5-5.0) g/dL Globulin 3.2 (1.7-4.1) g/dL Albumin/Globulin Ratio 1.5 (1.0-2.8) HCG, Quant 2271.0 mIU/mL Urine RBC None seen (0-5/HPF) Urine WBC None seen (0-5/HPF) Ur Squamous Epith Cells 10-30 /hpf H (0-5/HPF) Urine Bacteria None seen (None) Urine Mucus 2+ H (Negative) Ur Culture Indicated? Cult not indicated Vol Urine Centrifuged 10ml (spun) Blood Type A Positive Antibody Screen Negative Urine Dip Bedside Urine Glucose Negative Bedside Urine Bilirubin - Negative Bedside Urine Ketone - Negative Urine Specific Stopover 1.015 Bedside Urine Occult Blood - Negative Bedside Urine pH 6.5 Bedside Urine Protein +/- 15 Bedside Urine Urobilinogen - Negative Bedside Urine Nitrite - Negative Bedside Urine Leukocytes - Negative Esterase Imaging Data US - OB: Radiologist's Impression: [place] [address] Ultrasound Report Signed Patient: Lizeth Starr MR#: [id number] : 1990 Acct:[id number] Age/Sex: 34 / F Date of Service: 12/02/24 Loc: ED Accession Number: [id number] Procedure: US OB <= 14 weeks fetus Ordering Provider: Elizabeth Jarvis D.O. PROCEDURE: US OB <= 14 WEEKS FETUS INDICATIONS: spotting/cramping with LMP 1/4 OUTSIDE/PRIOR DATING DATA: Last menstrual period (LMP): 11/02/2024. LMP-based estimated date of delivery (KAZ): 08/09/2025. First dating scan (date and location): Today's exam Estimated date of delivery (KAZ) from first dating scan: 08/04/2025. TECHNIQUE: Real-time scanning was performed of the fetus and maternal pelvic organs, with image documentation. Endovaginal scanning was also performed to better visualize the fetus and maternal ovaries. COMPARISON: None. FINDINGS: Suspected early gestational , with a early gestational sac present within the upper endometrium. The sac measures 3.3 mm, corresponding to 5 weeks 0 days. No fetus visualized. Maternal organs: There is a hemorrhagic cyst of the right ovary measuring 3.1 x 3.8 x 4.3 cm. Left ovary is unremarkable. IMPRESSION: Suspected intrauterine gestational , with an intrauterine gestational sac measuring up to 5 weeks 0 days, KAZ of 08/04/2025. This is concordant with clinical dating. Large right ovarian hemorrhagic cyst measuring up to 4.3 cm. We strive to produce accurate, complete, and clear reports of imaging services. To assist us in improving patient care, this report was composed using standard report templates and voice recognition software. Therefore, it may contain abnormal punctuation, insertions and/or omissions. Occasional wrong-word or sound-alike substitutions may occur. Though we review the report and make efforts to correct it, we do recommend that the report be read carefully in proper context to recognize any text inaccuracies. Dictated by: Dontrell Oneil M.D. on 12/02/2024 at 10:41 Approved by: Dontrell Oneil M.D. on 12/02/2024 at 10:44 MDM Narrative Medical decision making narrative: Labs show white count of 9.6 hemoglobin of 13.9 platelets of 227. Chemistries show normal electrolytes BUN creatinine glucose of 96 LFTs are negative quant hCG is 2271. Point of care urine negative for nitrates and leuks positive for protein. Urine micro shows 10-30 squamous 2+ mucus no bacteria no white cells no red cells. Patient is O positive. Ultrasound shows suspected early gestational with early gestational sac present in upper endometrium sac measures 3.3 mm corresponds to 5 weeks 0 days no fetus visualized hemorrhagic cyst of the right ovary measuring 3.1 x 3.8 x 4.3 cm left ovary unremarkable. Spoke with Dr. Borjas, seismic interpreter 1223: Reviewed imaging and labs as well as patient O-positive. We will have patient follow up this week with the office asked that we cc her information to her. Discussed with patient ectopic is quite low on the differential was specially with intrauterine but does not need follow up for the cyst to make sure. Patient expresses understanding discussed return precautions. Can continue with Tylenol as needed for discomfort. Discharge Plan Departure Patient Disposition: Home Clinical Impression: Vaginal bleeding in , Hemorrhagic cyst of right ovary Instructions: DI for Vaginal Bleeding During Activity Restrictions/Additional Instructions: Please follow up with seismic interpreter, you did have a inside the uterus but there has also a large right ovarian cyst that is very unlikely that you would have to pregnancies at the same time follow up with OBGYN for rechecked. If you are having persistent pain you can take acetaminophen up to a 1000 mg every 6 hours as needed. Please return for fevers, rapidly worsening pain, lightheadedness or passing out, new chest pain or shortness of breath, vomiting, vaginal bleeding that is more than a pad an hour or other new or concerning changes Prescriptions: No Action vit-ferrous sulfat-FA 27 mg iron- 0.8 mg tablet 1 tab PO 1XD MDD 1 cetirizine [Allergy Relief (cetirizine)] 10 mg tablet 10 mg PO DAILY MDD 10 PRN (Reason: Allergy Symptoms) norgestimate-ethinyl estradiol 0.25-35 mg-mcg tablet 1 tab PO DAILY Qty: 84 6RF oxytocin See Rx Instructions .ROUTE .COMPLEX Qty: 10 0RF Rx Instructions: 10-40 units prior to each breast feeding session; acetaminophen 325 mg Tablet 650 mg PO Q6H PRN (Reason: Fever/Mild Pain (1-3)) Qty: 30 0RF Dermoplast (with menthol) 20-0.5 % Aerosol 1 spray topical Q1HR PRN (Reason: Pain, Moderate (4-6)) Qty: 56 0RF ibuprofen 600 mg Tablet 600 mg PO Q6HR PRN (Reason: Fever/Mild Pain (1-3)) Qty: 60 0RF Purelan Cream 1 applic topical PRN PRN (Reason: Tenderness) Qty: 7 0RF A.E.R. Witch Emily 12.5-50 % Pads, Medicated 1 pad topical Q30M PRN (Reason: Itching) Qty: 40 0RF Referrals: Miscellaneous,DoctorMD [Primary Care Provider] - Carmen Jara MD [Physician] - Stand Alone Forms: Patient Portal/API/Survey
[2024-12-02 11:50] VITALS: PULSE 110; O2SAT 100
[2024-12-02 11:51] VITALS: BP 119/75; PULSE 106; O2SAT 100
== END 2024-12-02 12:46 | disposition home or self-care (01) ==
PROVIDERS: Emergency Provider Emergency Medicine; Referring Provider Emergency Medicine
DX: O20.9 Hemorrhage in early pregnancy, unspecified (principal); O34.81 Maternal care for other abnormalities of pelvic organs, first trimester; N94.89 Other specified conditions associated with female genital organs and menstrual cycle; Z3A.01 Less than 8 weeks gestation of pregnancy
CPT/HCPCS: 36415; 76801; 76817; 80053; 81003; 81015; 84702; 85025; 86850; 86900; 86901; 99283

== ENCOUNTER → 2024-12-30 13:35 | Outpatient (CLI) | payer OTHER, SELFPAY ==
[2024-12-30 16:48] LABS: Urine N gonorrhoeae NOT DETECTED
[2024-12-30 16:59] LABS: Urine Chlamydia NOT DETECTED
== END ==
PROVIDERS: Visit Provider Obstetrics & Gynecology
DX: Z34.91 Encounter for supervision of normal pregnancy, unspecified, first trimester (principal); Z3A.09 9 weeks gestation of pregnancy
CPT/HCPCS: 87491; 87591

== ENCOUNTER → 2025-01-07 15:22 | Outpatient (CLI) | payer OTHER, SELFPAY | PROVIDERS: Visit Provider Obstetrics & Gynecology | DX: N89.8 Other specified noninflammatory disorders of vagina (principal) | CPT/HCPCS: 87480; 87510; 87660 ==

== ENCOUNTER → 2025-01-27 14:28 | Outpatient (CLI) | payer OTHER, SELFPAY ==
[2025-01-27 15:09] LABS: Add Manual Diff / Slide Review NO; Basophils Absolute Auto 0 /uL (0-100); Basophils Percent Auto 0.3 % (0-2); Eosinophils Absolute Auto 200 /uL (0-450); Eosinophils Percent Auto 1.9 % (2-4); Hematocrit 36.4 % (36-46); Hemoglobin 12.4 g/dL (12.0-16.0); Lymphocytes Absolute Auto 1900 /uL (1100-4500); Lymphocytes Percent Auto 22.8 % (25-40); Mean Corpuscular HGB Conc 34.1 % (30-36); Mean Corpuscular Hemoglobin 30.4 PG (26-34); Monocytes Absolute Auto 500 /uL (0-900); Monocytes Percent Auto 6.5 % (3-14); Neutrophils Absolute Auto 5700 /uL (1500-7000); Neutrophils Percent Auto 68.5 % (50-75); Platelet Count 241 X10^3/uL (150-400); Red Blood Cell Count 4.09 X10^6/uL (4.0-5.2); White Blood Cell Count 8.4 X10^3/uL (4.5-11.0)
[2025-01-27 15:43] LABS: Natera Collection Specimen Collected
[2025-01-28 12:18] LABS: Hepatitis B Surface Antigen NEGATIVE s/c (NEGATIVE); Rubella Antibody IgG 9.7 IU/mL (>15)
[2025-01-28 12:35] LABS: HIV 1 & 2 Ab/Ag 4th Gen Combo NEGATIVE (NEGATIVE); Hep C Virus Ab w/Reflex Quant NEGATIVE s/c (NEGATIVE)
== END ==
PROVIDERS: Referring Provider Obstetrics & Gynecology; Visit Provider Obstetrics & Gynecology
DX: Z34.81 Encounter for supervision of other normal pregnancy, first trimester (principal); Z3A.12 12 weeks gestation of pregnancy
CPT/HCPCS: 36415; 80055; 86787; 86803; 86850; 86900; 86901; 87086; 87389

== ENCOUNTER → 2025-03-18 14:01 | Outpatient (CLI) | payer OTHER, SELFPAY ==
--- NOTE | 2025-03-18 14:02 | DI.US.S_ITS ---
PROCEDURE: US OB >= 14 WEEKS FETUS INDICATIONS: anatomy scan OUTSIDE/PRIOR DATING DATA: Last menstrual period (LMP): 11/02/2024 LMP-based estimated date of delivery (KAZ): 08/09/2025. The calculations are made using the working KAZ of 08/07/2025 TECHNIQUE: Real-time scanning was performed of the fetus, with image documentation and biometric measurements. Endovaginal scanning: Not performed COMPARISON: 12/02/2024. FINDINGS: General: A single living intrauterine gestation is present. Presentation: Variable between transverse and vertex Placenta: Placental position is posterior, without previa. Amniotic fluid index: 12.3 cm, normal range is 5-24 cm. Single deepest vertical pocket is 4.8 cm. heart rate: 140 beats per minute. Maternal cervical canal: Closed and measures 5.1 cm long. Normal lower limit is 2.5 cm. biometrics: Biparietal diameter: 4.9 cm, 20 weeks, 6 days. Head circumference: 18.0 cm. 20 weeks, 3 days. Abdominal circumference: 14.3 cm, 19 weeks, 5 days. Femur length: 3.3 cm, 20 weeks, 1 day. Clinically estimated gestational age: 19 weeks, 5 days. Composite gestational age from present scan: 20 weeks, 2 days. Estimated weight and percentile: 326 g, 62%.. Anatomic survey: Neuro: Ventricles are non-dilated at less than 10 mm. Cisterna magna is normal at 3-11 mm. Cerebellum is normal in size and morphology. Nuchal skin fold: Normal at less than 6 mm between 14-21 weeks gestational age. Face: Nose and lips, facial profile are normal. Spine: No evidence for spina bifida. Heart: 4-chambered heart is present, with normal ventricular outflow tracts. Echogenic focus within left ventricle is seen. Diaphragm: Diaphragm is intact. Stomach: Left-sided stomach is present. Kidneys: Slight right renal pelviectasis. No left hydronephrosis. Normal is less than 5 mm in 2nd trimester, less than 7 mm in 3rd trimester. Cord: 3-vessel cord has orthotopic insertion. Bladder: Normal in size. Extremities: All 4 extremities identified. IMPRESSION: 1. Single live intrauterine gestation with fetus in variable presentation as above. heart rate is 140 beats per minute. Normal [place] at 12.3 cm. 2. Estimated weight is at 62% and is consistent with normal growth. 3. 2.1 mm echogenic focus is seen within left ventricle. Mild right renal pelviectasis. 4. Rest of the anatomic survey is normal. We strive to produce accurate, complete, and clear reports of imaging services. To assist us in improving patient care, this report was composed using standard report templates and voice recognition software. Therefore, it may contain abnormal punctuation, insertions and/or omissions. Occasional wrong-word or sound-alike substitutions may occur. Though we review the report and make efforts to correct it, we do recommend that the report be read carefully in proper context to recognize any text inaccuracies. Dictated by: Mohit Feldman M.D. on 03/18/2025 at 15:28 Approved by: Mohit Feldman M.D. on 03/18/2025 at 15:33
== END ==
LOC: US 14:02
PROVIDERS: Referring Provider Obstetrics & Gynecology; Visit Provider Emergency Medicine
DX: Z34.82 Encounter for supervision of other normal pregnancy, second trimester (principal); Z3A.20 20 weeks gestation of pregnancy
CPT/HCPCS: 76811

== ENCOUNTER → 2025-05-09 08:02 | Outpatient (CLI) | payer OTHER, SELFPAY ==
[2025-05-09 09:54] LABS: Add Manual Diff / Slide Review NO; Hematocrit 35.4 % (36-46); Hemoglobin 12.2 g/dL (12.0-16.0); Lymphocytes Absolute Auto 1200 /uL (1100-4500); Mean Corpuscular HGB Conc 34.6 % (30-36); Mean Corpuscular Hemoglobin 31.3 PG (26-34); Mean Corpuscular Volume 90.4 fL (80-100); Platelet Count 212 X10^3/uL (150-400)
[2025-05-09 10:02] LABS: GTT (PREG) 1 Hour PP 50gm Dose 90 mg/dL (76-139)
== END ==
PROVIDERS: Referring Provider Obstetrics & Gynecology; Visit Provider Obstetrics & Gynecology
DX: Z34.92 Encounter for supervision of normal pregnancy, unspecified, second trimester (principal); Z3A.26 26 weeks gestation of pregnancy
CPT/HCPCS: 36415; 82950; 85025

== ENCOUNTER → 2025-05-23 15:56 | Outpatient (CLI) | payer OTHER, SELFPAY ==
--- NOTE | 2025-05-23 15:57 | DI.US.S_ITS ---
PROCEDURE: US OB FOLLOW UP INDICATIONS: LVOT EIF AND PELVIECTASIS FOLLOW UP. GROWTH. OUTSIDE/PRIOR DATING DATA: Working KAZ of 08/07/2025. TECHNIQUE: Real-time scanning was performed of the fetus, with image documentation and biometric measurements. COMPARISON: [facility], , OB >= 14 WEEKS FETUS, 03/18/2025, 14:09. FINDINGS: General: A single living intrauterine gestation is present. Presentation: Vertex. Placenta: Placental position is posterior , without previa. Amniotic fluid index: 14 cm, normal range is 5-24 cm. Single deepest vertical pocket is 7.6 cm. heart rate: 137 beats per minute. Maternal cervical canal: 5.4 cm long. Normal lower limit is 2.5 cm. biometrics: Biparietal diameter: 7.6 cm 30 weeks 5 days Head circumference: 20.1 cm 30 weeks 5 days Abdominal circumference: 24.9 cm 29 weeks 1 day Femur length: 5.5 cm 29 weeks 1 day Clinically estimated gestational age: 29 weeks 1 day Composite gestational age from present scan: 30 weeks 0 days Estimated weight and percentile: 1387 g 46th percentile Other: Previously identified echogenic left ventricular focus is no longer visualized. Kidneys are unremarkable without visualized pelvocaliectasis. Bladder is mildly prominent. IMPRESSION: Single live intrauterine with gestational age today of 30 weeks 0 days. Previous echogenic left ventricular focus is no longer visualized. Mild prominence of bladder distention, nonspecific. We strive to produce accurate, complete, and clear reports of imaging services. To assist us in improving patient care, this report was composed using standard report templates and voice recognition software. Therefore, it may contain abnormal punctuation, insertions and/or omissions. Occasional wrong-word or sound-alike substitutions may occur. Though we review the report and make efforts to correct it, we do recommend that the report be read carefully in proper context to recognize any text inaccuracies. Dictated by: Selina Hannah M.D. on 05/23/2025 at 21:47 Approved by: Selina Hannah M.D. on 05/23/2025 at 21:49
== END ==
LOC: US 15:57
PROVIDERS: Referring Provider Obstetrics & Gynecology; Visit Provider Obstetrics & Gynecology
DX: Z36.89 Encounter for other specified antenatal screening (principal); Z3A.30 30 weeks gestation of pregnancy
CPT/HCPCS: 76816

== ENCOUNTER 2025-06-02 19:04 | Observation (INO) | payer OTHER, SELFPAY ==
[2025-06-02 19:29] LABS: Appearance Urine UA CLEAR; Bilirubin Urine UA NEGATIVE (NEGATIVE); Color Urine UA YELLOW; Glucose Urine UA NEGATIVE (Negative); Ketones Urine UA NEGATIVE (NEGATIVE); Leukocyte Esterase Urine UA NEGATIVE (NEGATIVE); Nitrite Urine UA NEGATIVE (Negative); Occult Blood Urine UA NEGATIVE (Negative); Protein Urine UA NEGATIVE (Negative); Specific Gravity Urine UA 1.010 (1.000-1.035); Urobilinogen Urine UA 0.2 E.U./dL (0.2)
[2025-06-02 19:31] LABS: pH Urine UA 7.0 (4.5-8.0)
[2025-06-02 19:37] LABS: Culture Indicated Urine Cult Not Indicated
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
[2025-06-02 21:47] VITALS: BP 107/59; PULSE 78; TEMP 36.2
[2025-06-02 21:52] LABS: Add Manual Diff / Slide Review NO; Hematocrit 38.3 % (36-46); Hemoglobin 13.1 g/dL (12.0-16.0); Lymphocytes Absolute Auto 2000 /uL (1100-4500); Mean Corpuscular HGB Conc 34.2 % (30-36); Mean Corpuscular Hemoglobin 30.7 PG (26-34); Mean Corpuscular Volume 89.8 fL (80-100); Platelet Count 216 X10^3/uL (150-400)
[2025-06-02 22:03] LABS: Alanine Aminotransferase 13 IU/L (<35); Albumin 4.1 g/dL (3.5-5.0); Albumin Globulin Ratio 1.2 (1.0-2.8); Alkaline Phosphatase 89 U/L (38-126); Blood Urea Nitrogen 4 mg/dL (7-17); Calcium 9.4 mg/dL (8.4-10.2); Carbon Dioxide 22 mmol/L (22-32); Chloride 107 mmol/L (98-107); Estimated Glomerular Filt Rate > 60 mL/min (>60); Globulin 3.4 g/dL (1.7-4.1); Glucose 94 mg/dL (70-99); HEMOLYSIS < 15 (0-50); Magnesium 1.6 mg/dL (1.6-2.3); Potassium 3.8 mmol/L (3.4-5.1); Sodium 136 mmol/L (137-145); Total Protein 7.5 g/dL (6.3-8.2)
[2025-06-02] MEDS: NIFEdipine 30 MG TAB ER PO (22:08)
[2025-06-02 22:19] LABS: Fetal Fibronectin Negative
[2025-06-02] MEDS: ZOLPIDEM 5 MG TABLET PO (23:45)
[2025-06-03] MEDS: ACETAMINOPHEN 325 MG TABLET 650 MG PO (03:47)
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
== END 2025-06-03 10:17 | disposition home or self-care (01) ==
PROVIDERS: Admitting Provider Obstetrics & Gynecology; Referring Provider Obstetrics & Gynecology; Visit Provider Obstetrics & Gynecology
DX: O47.03 False labor before 37 completed weeks of gestation, third trimester (principal); O9A.213 Injury, poisoning and certain other consequences of external causes complicating pregnancy, third trimester; S39.91XA Unspecified injury of abdomen, initial encounter; W50.0XXA Accidental hit or strike by another person, initial encounter; Z3A.30 30 weeks gestation of pregnancy
CPT/HCPCS: 36415; 59025; 59050; 76815; 80053; 81001; 82731; 83735; 85025; 86850; 86900; 86901; 96360; G0378; G0379

== ENCOUNTER → 2025-07-18 11:53 | Outpatient (CLI) | payer OTHER, SELFPAY ==
[2025-07-19 09:53] LABS: Strep Grp B PCR NEG for Grp B Strep
== END ==
LOC: LAB 11:54
PROVIDERS: Visit Provider Obstetrics & Gynecology
DX: Z34.93 Encounter for supervision of normal pregnancy, unspecified, third trimester (principal); Z3A.37 37 weeks gestation of pregnancy
CPT/HCPCS: 87653